=== PATIENT | male | born 1985 | race Hispanic/Latino ===

== ENCOUNTER 2020-12-08 16:41 | Outpatient (CLI) | payer BC, SELFPAY ==
--- NOTE | 2020-12-08 | ECG_ITS ---
Measurements Intervals [place] Rate: 78 P: 60 PA: 150 QRS: 9 QRSD: 100 T: 40 QT: 350 QTc: 400 Interpretive Statements SINUS RHYTHM NORMAL ECG Electronically Signed On 12-08-2020 19:49:56 CDT by Joshua Chao D.O.
--- NOTE | ~2020-12-08 | XR_ITS ---
EXAMINATION: XR chest 2V 12/08/2020 17:29 INDICATION: Midsternal chest pain and dyspnea PROCEDURE: 2 view chest COMPARISON: No prior studies for comparison. FINDINGS: The lungs are clear. The cardiomediastinal silhouette is within normal limits. There are no pleural effusions. There is no pneumothorax suspected. IMPRESSION: 1: NO ACUTE CARDIOPULMONARY DISEASE. Reviewed, dictated and finalized at location A.
== END 2020-12-08 16:42 | disposition home or self-care (01) ==
LOC: ANHIMG 16:50
PROVIDERS: Visit Provider Registered Nurse
DX: R06.09 Other forms of dyspnea (principal)
CPT/HCPCS: 71046; 93005

== ENCOUNTER 2021-02-20 19:22 | Emergency (ER) | payer BC, SELFPAY ==
--- NOTE | ~2021-02-20 | CT_ITS ---
EXAMINATION: CT abdomen pelvis wo con DATE: 02/20/2021 23:48 INDICATION: Flank pain. TECHNIQUE: Computed tomography (CT) of the abdomen and pelvis was performed without intravenous contr ast. Automated exposure control and iterative reconstruction technique were employed. The dose-length product was 1271.33 mGy-cm. COMPARISON: None. FINDINGS: The visualized portions of the lung bases demonstrate mild atelectasis. No pleural effusion . The heart size is normal. No pericardial effusion. There is diffuse hepatic steatosis. The gallblad lacie, spleen, pancreas, adrenal glands, and kidneys are normal. There is no urolithiasis. There are no dilated loops of bowel. The appendix is normal. There are no pathologically enlarged lymph nodes. Th ere is no free intraperitoneal fluid. There is mild osteoarthritis of the hips. IMPRESSION: 1. No urolithiasis. 2. Diffuse hepatic steatosis. Reviewed, dictated and finalized at location A. BER LIGHT
[2021-02-20 19:35] VITALS: BP 148/87; PULSE 99; RESP 16; TEMP 36.6; O2SAT 99
[2021-02-20 22:04] VITALS: BP 133/85; PULSE 105; O2SAT 97
--- NOTE | 2021-02-20 23:35 | ED.BACK ---
HPI - Back Pain/Injury General Chief Complaint: Back Pain/Injury Stated Complaint: back pain Time Seen by Provider: 02/20/21 23:26 Source: patient History of Present Illness HPI Narrative: Patient presents with bilateral kidney pain . Reports symptoms present for approximately 24 hours not remember any specific injuries. His pain is achy, constant, worse than anything he is experienced before, no radiation, does worsen with moving his upper torso. Denies any urinary symptoms denies any nausea vomiting or diarrhea denies any recent fevers. Related Data Home Medications Medication Instructions Recorded Confirmed loratadine mg 02/21/21 Allergies Allergy/AdvReac Type Severity Reaction Status Date / Time tree nut Allergy Unknown UNKNOWN Verified 02/21/21 00:12 Review of Systems Review of Systems: CONSTITUTIONAL: Denies fever, chills, or sweats. EYES: Denies visual changes, redness, or discharge. ENT: Denies rhinorrhea, congestion, sore throat, or otalgia. CARDIOVASCULAR: Denies chest pain, palpitations, or edema. RESPIRATORY: Denies cough or dyspnea. GASTROINTESTINAL: Denies abdominal pain, nausea, vomiting, or diarrhea. GENITOURINARY: Denies dysuria or hematuria. SKIN: Denies rash or itching. MUSCULOSKELETAL: Denies joint pain, or myalgia. NEUROLOGIC: Denies headache, numbness, dizziness, or weakness. PSYCHIATRIC: Denies anxiety or depression. All systems reviewed & are unremarkable except as noted in HPI and below PMFSH Past Medical History Medical History (Updated 02/21/21 @ 01:48 by Johny Calderon MD) Patient denies significant medical history Social History Social History (Updated 02/20/21 @ 23:37 by Johny Calderon MD) Smoking status: Former smoker Alcohol intake: never Substance use: never Exam Narrative: GENERAL: Well-appearing, well-nourished, and in no acute distress. HEAD: Normocephalic, atraumatic. EYES: PERRLA and EOMI. ENT: Nares clear, no rhinorrhea or epistaxis. Mucous membranes moist. NECK: Supple. No masses. No JVD ABDOMEN: Soft, nontender, nondistended, normal active bowel sounds. BACK: No CVA tenderness, no midline back pain, minimal tenderness palpation on the paraspinal lumbar muscles. EXTREMITIES: Normal range of motion. No edema. SKIN: Warm, dry, no rash. NEURO: No focal deficits. Alert and oriented x3. PSYCH: Normal mood and affect. Course Reevaluation(s) Reevaluation #1: Patient resting comfortably results and plan reviewed with patient. Patient comfortable with outpatient plan. Date: 02/21/21 Time: 01:46 Vital Signs Vital signs: Vital Signs Temperature 36.6 C 02/20/21 19:35 Pulse Rate 99 02/20/21 19:35 Respiratory Rate 16 02/20/21 19:35 Blood Pressure 148/87 H 02/20/21 19:35 Pulse Oximetry 99 02/20/21 19:35 Temperature 36.6 C 02/20/21 19:35 Pulse Rate 85 02/21/21 02:14 Respiratory Rate 16 02/21/21 02:14 Blood Pressure 134/89 02/21/21 02:14 Pulse Oximetry 98 02/21/21 02:14 MDM - Back Pain/Injury MDM Narrative Medical decision making narrative: H&P as above, vss, pt looks clinically well, exam reassuring, labs clinically unremarkable, img clinically unremarkable, additional labs/img considered, symptomatic relief available as needed, on reevaluation pt continues to looks clinically well. Suspect MSK pain, dns stone, acute kidney injury, cauda equina, cord compromise, fracture, pyelonephritis. plan to tx/monitor as op w/ pcm f/u findings/plan discussed with pt, pt agree/comfortable with plan, return precautions given Lab Data Result diagrams: 02/21/21 00:26 02/21/21 00:26 Labs: Lab Results 02/21/21 02/21/21 02/21/21 Range/Units 00:26 00:26 00:26 WBC 9.3 (4.5-10.0) K/mm3 RBC 5.54 (4.6-6.20) M/mm3 Hgb 15.7 (14.0-18.0) g/dL Hct 46.0 (42.0-52.0) % MCV 83.0 (80-100) fl MCH 28.3 (26-34) pg MCHC 34.1 (32-36) g/dl RDW 12.8 (11.5-14.5) % Plt Count
[2021-02-21 00:10] VITALS: BP 115/78; PULSE 86; RESP 18; O2SAT 98
[2021-02-21] MEDS: ACETAMINOPHEN 500 MG TABLET 1000 MG PO (00:13)
[2021-02-21 01:12] LABS: Basophils Percent Auto 0.3 % (0.2-1.2); Eosinophils Absolute Auto 0.1 K/mm3 (0-0.3); Eosinophils Percent Auto 1.4 % (0-4.4); Hemoglobin 15.7 g/dL (14.0-18.0); Immature Granulocyte Absolute 0.03 K/mm3 (0.00-0.031); Immature Granulocyte Percent A 0.3 % (0-0.5); Lymphocytes Percent Auto 32.1 % (18.3-44.2); Mean Corpuscular HGB Conc 34.1 g/dl (32-36); Mean Corpuscular Hemoglobin 28.3 pg (26-34); Mean Platelet Volume 9.5 fl (7.4-10.4); Monocytes Absolute Auto 0.8 K/mm3 (0.1-0.6); Monocytes Percent Auto 8.2 % (2.6-8.5); Neutrophils Absolute Auto 5.4 K/mm3 (1.3-6.7); Neutrophils Percent Auto 57.7 % (45.5-73.1); Platelet Count Result 357 k/mm3 (150-375); Red Blood Count 5.54 M/mm3 (4.6-6.20); Red Cell Distribution Width 12.8 % (11.5-14.5); White Blood Count 9.3 K/mm3 (4.5-10.0)
[2021-02-21 01:24] LABS: Add Urine Microscopic? YES; Appearance Urine Clear (Clear); Bilirubin Urine Negative (Negative); Blood Urine Negative (Negative); Color Urine Yellow (Yellow); Glucose Urine UA Negative (Negative); Ketones Urine Negative (Negative); Leukocyte Esterase Ur Negative LEU/UL (Negative); Mucus Urine Heavy /lpf; Nitrate Urine Negative (Negative); Protein Urine Negative (Negative); RBC Urine 0-2 /hpf (0-2)
[2021-02-21 01:25] LABS: Alanine Aminotransferase 62 U/L (4-50); Albumin Level 4.7 g/dL (3.5-5.1); Alkaline Phosphatase 95 U/L (38-126); Anion Gap 12 mmol/L (8-16); Aspartate Amino Transferase 42 U/L (17-59); Bilirubin,Total 0.4 mg/dL (0.2-1.3); Blood Urea Nitrogen 12 mg/dL (9-20); Calcium 9.5 mg/dL (8.4-10.2); Carbon Dioxide 28 mmol/L (22-30); Chloride 103 mmol/L (98-107); Estimated CRCL calculation 154 ml/min; Estimated Glomerular Filt Rate > 60; Glucose 84 mg/dL (65-110); Potassium 3.7 mmol/L (3.4-5.0); Sodium 143 mmol/L (137-145)
[2021-02-21 01:27] LABS: Specific Grav Ur 1.032 (1.001-1.035)
[2021-02-21 02:14] VITALS: BP 134/89; PULSE 85; RESP 16; O2SAT 98
[2021-02-21] MEDS: KETOROLAC 30 MG/ML VIAL (*BKC) IM (02:16)
== END 2021-02-21 02:26 | disposition home or self-care (01) ==
PROVIDERS: Emergency Provider Emergency Medicine; PCP Registered Nurse
DX: S39.012A Strain of muscle, fascia and tendon of lower back, initial encounter (principal); Z87.891 Personal history of nicotine dependence; Y33.XXXA Other specified events, undetermined intent, initial encounter
CPT/HCPCS: 36415; 74176; 80053; 81001; 85025; 96372; 99284; A9270; J1885

== ENCOUNTER 2021-06-13 02:56 | Emergency (ER) | payer BC, SELFPAY ==
--- NOTE | ~2021-06-13 | CT_ITS ---
EXAMINATION: CT abdomen pelvis w con DATE: 06/13/2021 06:14 INDICATION: Abdominal pain TECHNIQUE: Computed tomography (CT) of the abdomen and pelvis was performed with 100 mL Omnipaque-350 intravenous contrast. Automated exposure control and iterative reconstruction technique were employe d. The dose-length product was 1010.67 mGy-cm. COMPARISON: 02/20/2021 FINDINGS: Linear bands of discoid atelectasis in the bilateral lower lung zones. Heart size is normal. No peric ardial or pleural effusion. Diffuse hepatic steatosis with focal sparing along the gallbladder fossa. Gallbladder, pancreas, spleen, bilateral adrenal glands and kidneys are normal. Bowels including the appendix are normal. Bladder is normal. No free intraperitoneal gas or fluid. No pathologically enla rged abdominal or pelvic lymphadenopathy. Chronic mild likely physiologic anterior wedging at T11-L1. IMPRESSION: 1. No acute intra-abdominal/pelvic process. 2. Diffuse hepatic steatosis. Reviewed, dictated and finalized at location A.
[2021-06-13 02:59] VITALS: BP 125/86; PULSE 108; RESP 22; TEMP 35.9; O2SAT 97
--- NOTE | 2021-06-13 03:07 | ECG_ITS ---
Measurements Intervals [place] Rate: 99 P: 63 CO: 160 QRS: 18 QRSD: 104 T: 24 QT: 333 QTc: 428 Interpretive Statements SINUS RHYTHM EARLY REPOLARIZATION OTHERWISE NORMAL ECG COMPARED TO ECG 12/08/2020 17:10:49 NO SIGNIFICANT CHANGE Electronically Signed On 06-14-2021 8:28:59 CDT by Lazaro Clarke M.D.
--- NOTE | 2021-06-13 03:08 | ED.GENADULT ---
HPI - General Adult General Chief complaint: Nausea/Vomiting/Diarrhea <Rohan Jefferson MD - Last Filed: 06/13/21 06:54> Stated complaint: NEAR SYNCOPE AFTER EXOPSURE POWDER <Rohan Jefferson MD - Last Filed: 06/13/21 06:54> Time Seen by Provider: 06/13/21 03:04 <Rohan Jefferson MD - Last Filed: 06/13/21 06:54> Source: patient <Rohan Jefferson MD - Last Filed: 06/13/21 06:54> Mode of arrival: EMS <Rohan Jefferson MD - Last Filed: 06/13/21 06:54> Limitations: no limitations <Rohan Jefferson MD - Last Filed: 06/13/21 06:54> History of Present Illness HPI narrative: Patient is a 36-year-old male complaining of nausea and near syncopal episode after touching a white substance in the bathroom while on break at work. Patient denies any loss of consciousness. Patient denies any chest pain, shortness of breath, abdominal pain, vomiting, fever or chills. <Rohan Jefferson MD - Last Filed: 06/13/21 06:54> Related Data Home medications: Home Medications Medication Instructions Recorded Confirmed No Home Medications 06/13/21 06/13/21 <Roahn Jefferson MD - Last Filed: 06/13/21 06:54> Allergies/adverse reactions: Allergies Allergy/AdvReac Type Severity Reaction Status Date / Time tree nut Allergy Unknown UNKNOWN Verified 06/13/21 03:07 <Rohan Jefferson MD - Last Filed: 06/13/21 06:54> Review of Systems Review of Systems: All systems reviewed & are unremarkable except as noted in HPI and below <Rohan Jefferson MD - Last Filed: 06/13/21 06:54> Constitutional: Constitutional: Denies body ache(s), Denies chills, Denies excessive sweating, Denies fatigue, Denies fever(s), Denies headache(s), Denies lethargy, Denies malaise, Denies weakness and Denies weight loss <Rohan Jefferson MD - Last Filed: 06/13/21 06:54> Eyes: Eyes: Denies blurry vision, Denies change in vision and Denies loss of vision <Rohan Jefferson MD - Last Filed: 06/13/21 06:54> ENT: Denies dizziness, Denies ear discharge, Denies headache(s), Denies lip swelling, Denies epistaxis, Denies nasal congestion, Denies neck pain, Denies throat swelling and Denies tongue swelling <Rohan Jefferson MD - Last Filed: 06/13/21 06:54> Cardiovascular: Cardiovascular: Denies chest pain, Denies chest pain at rest, Denies chest pain with activity, Denies diaphoresis, Denies rapid heart rate, Denies edema, Denies irregular heart rhythm, Denies lightheadedness, Denies palpitations, Denies dyspnea and Denies dyspnea on exertion <Rohan Jefferson MD - Last Filed: 06/13/21 06:54> Respiratory: Respiratory: Denies chest congestion, Denies cough, Denies hemoptysis, Denies dyspnea and Denies dyspnea on exertion <Rohan Jefferson MD - Last Filed: 06/13/21 06:54> Gastrointestinal: Gastrointestinal: Denies abdominal pain, Denies melena, Denies hematochezia, Denies diarrhea, Reports nausea, Denies vomiting and Denies hematemesis <Rohan Jefferson MD - Last Filed: 06/13/21 06:54> Musculoskeletal: Musculoskeletal: Denies abnormal gait, Denies deformity, Denies joint swelling, Denies limited range of motion, Denies neck pain and Denies numbness <Rohan Jefferson MD - Last Filed: 06/13/21 06:54> Neurologic: Denies Abnormal speech present, Denies abnormal gait, Denies confusion, Denies dizziness, Denies headache(s), Denies focal weakness, Denies loss of vision, Denies numbness, Denies Other visual disturbances, Denies Sensory deficit (Neuro) and Denies weakness <Rohan Jefferson MD - Last Filed: 06/13/21 06:54> Psychiatric: Psychiatric: Denies confusion, Denies depression, Denies auditory hallucinations, Denies homicidal ideation and Denies suicidal ideation <Rohan Jefferson MD - Last Filed: 06/13/21 06:54> Endocrine: Endocrine: Denies cold intolerance, Denies excessive sweating, Denies fatigue, Denies heat intolerance and Denies palpitations <Rohan Jefferson MD - Last Filed: 06/13/21 06:5
[2021-06-13] MEDS: PROMETHAZINE HCL 25 MG/ML AMPUL 12.5 MG IV PUSH (03:24)
[2021-06-13] MEDS: SODIUM CHLORIDE 0.9% IV 1,000 ML 999 ML IV CONT (03:24)
[2021-06-13 03:50] VITALS: BP 120/85; PULSE 96; RESP 15; O2SAT 93
[2021-06-13 04:09] LABS: Basophils Percent Auto 0.1 % (0.2-1.2); Hematocrit 46.4 % (42.0-52.0); Hemoglobin 15.1 g/dL (14.0-18.0); Immature Granulocyte Absolute 0.25 K/mm3 (0.00-0.031); Immature Granulocyte Percent A 1.2 % (0-0.5); Lymphocytes Absolute Auto 1.32 K/mm3 (0.9-3.2); Lymphocytes Percent Auto 6.5 % (18.3-44.2); Mean Corpuscular HGB Conc 32.5 g/dl (32-36); Mean Corpuscular Hemoglobin 28.1 pg (26-34); Mean Corpuscular Volume 86.4 fl (80-100); Mean Platelet Volume 9.4 fl (7.4-10.4); Monocytes Absolute Auto 1.2 K/mm3 (0.1-0.6); Monocytes Percent Auto 5.9 % (2.6-8.5); Neutrophils Absolute Auto 17.6 K/mm3 (1.3-6.7); Neutrophils Percent Auto 86.3 % (45.5-73.1); Platelet Count Result 341 k/mm3 (150-375); Red Blood Count 5.37 M/mm3 (4.6-6.20); Red Cell Distribution Width 13.4 % (11.5-14.5); White Blood Count 20.4 K/mm3 (4.5-10.0)
[2021-06-13 04:12] LABS: Alanine Aminotransferase 58 U/L (4-50); Albumin Level 4.7 g/dL (3.5-5.1); Alkaline Phosphatase 97 U/L (38-126); Anion Gap 12 mmol/L (8-16); Aspartate Amino Transferase 67 U/L (17-59); Bilirubin,Total 0.2 mg/dL (0.2-1.3); Blood Urea Nitrogen 10 mg/dL (9-20); Carbon Dioxide 23 mmol/L (22-30); Chloride 105 mmol/L (98-107); Estimated CRCL calculation 144 ml/min; Estimated Glomerular Filt Rate > 60; Glucose 161 mg/dL (65-110); Lipase 31 U/L (23-300); Potassium 4.3 mmol/L (3.4-5.0); Sodium 140 mmol/L (137-145)
[2021-06-13 04:58] LABS: Amphetamine Screen Urine Negative (Negative); Barbiturate Screen Urine Negative (Negative); Benzodiazepines Screen Urine Negative (Negative); Cannabinoid Screen Urine Negative (Negative); Cocaine Screen Urine Negative (Negative); Methadone Screen Urine Negative (Negative); Opiate Screen Urine Negative (Negative); Phencyclidine Screen Urine Negative (Negative)
[2021-06-13 05:17] VITALS: BP 129/83; PULSE 93; RESP 16; O2SAT 94
[2021-06-13 06:28] LABS: Add Urine Microscopic? YES; Appearance Urine Cloudy (Clear); Bilirubin Urine Negative (Negative); Blood Urine Negative (Negative); Color Urine Yellow (Yellow); Glucose Urine UA 2+ mg/dL (Negative); Hyaline Casts Urine 30-49 /lpf; Ketones Urine Negative (Negative); Leukocyte Esterase Ur Negative LEU/UL (Negative); Mucus Urine Few /lpf; Nitrate Urine Negative (Negative); Protein Urine 1+ mg/dL (Negative); RBC Urine 0-2 /hpf (0-2); Specific Grav Ur 1.021 (1.001-1.035); Squamous Epithelial Cell Urine Rare /hpf (Few); Urobilinogen Urine Negative mg/dL (<2.0); WBC Urine 0-3 /hpf
[2021-06-13 06:35] VITALS: BP 127/89; PULSE 86; RESP 15; O2SAT 93
[2021-06-13 08:12] VITALS: BP 123/81; PULSE 96; RESP 18; O2SAT 92
== END 2021-06-13 08:14 | disposition home or self-care (01) ==
PROVIDERS: Emergency Provider Emergency Medicine; PCP Registered Nurse
DX: Z77.098 Contact with and (suspected) exposure to other hazardous, chiefly nonmedicinal, chemicals (principal); R55 Syncope and collapse; R11.0 Nausea; Z87.891 Personal history of nicotine dependence; K76.0 Fatty (change of) liver, not elsewhere classified
CPT/HCPCS: 36415; 74177; 80053; 80307; 81001; 83690; 85025; 93005; 96361; 96374; 99284; J2550; J7030; Q9967

== ENCOUNTER 2022-01-05 15:50 | Emergency (ER) | payer BC, SELFPAY ==
--- NOTE | 2022-01-05 15:56 | PC.NURSE ---
RN called pt. for triage no answer
[2022-01-05 16:06] VITALS: BP 143/91; PULSE 91; RESP 20; TEMP 36.6; O2SAT 100
--- NOTE | 2022-01-05 17:26 | ED.GENADULT ---
HPI - General Adult General Chief complaint: Wound/Laceration Stated complaint: laceration x week Time Seen by Provider: 01/05/22 17:06 Source: patient Mode of arrival: ambulatory Limitations: no limitations History of Present Illness HPI narrative: Patient presents complaints of wound to states area started as an infected hair and has increased in size and is becoming painful. Denies fever or other complaints at this time. Has not been treating at home with anything yet. Related Data Home Medications Medication Instructions Recorded Confirmed No Home Medications 06/13/21 06/13/21 Allergies Allergy/AdvReac Type Severity Reaction Status Date / Time tree nut Allergy Unknown UNKNOWN Verified 06/13/21 03:07 Review of Systems Review of Systems: CONSTITUTIONAL: Denies fever, chills, or sweats. EYES: Denies visual changes, redness, or discharge. ENT: Denies rhinorrhea, congestion, sore throat, or otalgia. CARDIOVASCULAR: Denies chest pain, palpitations, or edema. RESPIRATORY: Denies cough or dyspnea. GASTROINTESTINAL: Denies abdominal pain, nausea, vomiting, or diarrhea. GENITOURINARY: Denies dysuria or hematuria. SKIN: Abscess suprapubic area. Denies rash or itching. MUSCULOSKELETAL: Denies back pain, joint pain, or myalgia. NEUROLOGIC: Denies headache, numbness, or weakness. PSYCHIATRIC: Denies anxiety or depression. PMFSH Past Medical History Medical History Patient denies significant medical history Social History Social History Smoking status: Former smoker Alcohol intake: never Substance use: never Exam Narrative: GENERAL: Well-appearing, well-nourished, and in no acute distress. HEAD: Normocephalic, atraumatic. EYES: PERRLA and EOMI. ENT: Nares clear, no rhinorrhea or epistaxis. Mucous membranes moist. NECK: Supple. CHEST: Clear to auscultation. No respiratory distress. HEART: Regular rate and rhythm. No murmur heard. Normal peripheral pulses. ABDOMEN: Soft, nontender, nondistended, normal active bowel sounds. EXTREMITIES: Normal range of motion. No edema. SKIN: Warm, dry, no rash. 3 cm area of induration suprapubic area. Central opening noted to abscess with scant serosanguineous drainage. Mild erythema directly surrounding area of induration. Area is tender to palpation. No central fluctuance. NEURO: No focal deficits. Alert and oriented x3. PSYCH: Normal mood and affect. Course Course Emergency Course: After examining patient and returning to answer discharge instructions patient stated that he could not wait any longer for discharge instructions and prescription. States that he has to be in a class and is leaving AGAINST MEDICAL ADVICE prior to receiving prescription or instructions. Vital Signs Vital signs: Vital Signs Temperature 36.6 C 01/05/22 16:06 Pulse Rate 91 01/05/22 16:06 Respiratory Rate 20 01/05/22 16:06 Blood Pressure 143/91 H 01/05/22 16:06 Pulse Oximetry 100 01/05/22 16:06 Oxygen Delivery Room Air 01/05/22 16:06 Temperature 36.6 C 01/05/22 16:06 Pulse Rate 91 01/05/22 16:06 Respiratory Rate 20 01/05/22 16:06 Blood Pressure 143/91 H 01/05/22 16:06 Pulse Oximetry 100 01/05/22 16:06 Oxygen Delivery Room Air 01/05/22 16:06 Medical Decision Making Vital Signs Vital Signs: Vital Signs Temperature 36.6 C 01/05/22 16:06 Pulse Rate 91 01/05/22 16:06 Respiratory Rate 20 01/05/22 16:06 Blood Pressure 143/91 H 01/05/22 16:06 Pulse Oximetry 100 01/05/22 16:06 Oxygen Delivery Room Air 01/05/22 16:06 Temperature 36.6 C 01/05/22 16:06 Pulse Rate 91 01/05/22 16:06 Respiratory Rate 20 01/05/22 16:06 Blood Pressure 143/91 H 01/05/22 16:06 Pulse Oximetry 100 01/05/22 16:06 Oxygen Delivery Room Air 01/05/22 16:06 Discharge Plan Discharge Clinical Impression: Abscess
--- NOTE | 2022-01-05 17:37 | PC.NURSE ---
Patient states he is leaving because he needs to get to class. HOSPITAL AIDE Ashok notified, patient signed out AMA. Patient educated to return to ED if symptoms worsen or continue and patient states I will come back after class.
== END 2022-01-05 17:40 | disposition left against medical advice (07) ==
PROVIDERS: PCP Registered Nurse
DX: L02.219 Cutaneous abscess of trunk, unspecified (principal); Z53.29 Procedure and treatment not carried out because of patient's decision for other reasons
CPT/HCPCS: 99281

== ENCOUNTER 2022-02-22 16:05 | Emergency (ER) | payer BC, SELFPAY ==
[2022-02-22 16:24] VITALS: BP 122/79; PULSE 80; RESP 18; TEMP 36.7; O2SAT 100
--- NOTE | 2022-02-22 17:24 | ED.WOUNDLAC ---
HPI - Wound/Laceration General Chief Complaint: Wound/Laceration Stated Complaint: wound that won't heal Time Seen by Provider: 02/22/22 17:08 Source: patient Mode of arrival: ambulatory Limitations: no limitations History of Present Illness HPI narrative: 37-year-old male presents today with complaints of a draining abscess to his beltline. Patient states he had an abscess there previously but it went away. Noticed this 1 then started draining yesterday. Drainage is purulent and sanguinous. Small amount. Patient denies any fevers, body aches, chills. Patient denies any other issues. Related Data Allergies Allergy/AdvReac Type Severity Reaction Status Date / Time tree nut Allergy Unknown UNKNOWN Verified 06/13/21 03:07 Review of Systems Review of Systems: CONSTITUTIONAL: Denies fever, chills, or sweats. EYES: Denies visual changes, redness, or discharge. CARDIOVASCULAR: Denies chest pain, palpitations, or edema. RESPIRATORY: Denies cough or dyspnea. GASTROINTESTINAL: Denies abdominal pain, nausea, vomiting, or diarrhea. GENITOURINARY: Denies dysuria or hematuria. SKIN: Denies rash or itching. Draining abscess to beltline. PMFSH Past Medical History Medical History Patient denies significant medical history Social History Social History Smoking status: Former smoker Alcohol intake: never Substance use: never Exam Narrative: GENERAL: Well-appearing, well-nourished, and in no acute distress. HEAD: Normocephalic, atraumatic. EYES: PERRLA and EOMI. CHEST: Clear to auscultation. No respiratory distress. No wheezes rales or rhonchi HEART: Regular rate and rhythm. No murmur heard. Normal peripheral pulses. ABDOMEN: Soft, nontender, nondistended, normal active bowel sounds. EXTREMITIES: Normal range of motion. No edema. SKIN: Warm, dry, no rash. Small 1 cm open draining abscess noted above pelvic bone. Area of 1 to 2 cm surrounding induration Course Vital Signs Vital signs: Vital Signs Temperature 98.0 F 02/22/22 16:24 Pulse Rate 80 02/22/22 16:24 Respiratory Rate 18 02/22/22 16:24 Blood Pressure 122/79 02/22/22 16:24 Pulse Oximetry 100 02/22/22 16:24 Oxygen Delivery Room Air 02/22/22 16:24 Temperature 98.0 F 02/22/22 16:24 Pulse Rate 80 02/22/22 16:24 Respiratory Rate 18 02/22/22 16:24 Blood Pressure 122/79 02/22/22 16:24 Pulse Oximetry 100 02/22/22 16:24 Oxygen Delivery Room Air 02/22/22 16:24 Procedures Abscess I/D abdomen: Date of Incision: 02/22/22 Time of Incision: 17:29 Sedation/analgesia: none Local Anesthetic: none Technique: probed loculations and other (area already opened no need to incise. ) Amount of fluid expressed (mL): 1 Irrigation: Yes Packing used?: none I&D Results: Pus and Blood Complications: pain MDM - Wound/Laceration Differential Diagnosis Differential diagnosis: Likely abscess and other (cellulitis) Medical Records Attestation: I reviewed the patient's medical records. Discharge Plan Discharge Clinical Impression: Abscess Patient Disposition: Home, Self-Care Condition: Stable Instructions: Antibiotic Form, Cellulitis (ED) Additional Instructions: Please take antibiotics as prescribed start tonite. Wash wound twice a day with soap and water. Follow-up with your primary care physician in 3 days. Return with any new or worsening symptoms including fever increased swelling or increased pain. Prescriptions: New sulfamethoxazole-trimethoprim [Bactrim DS] 800-160 mg tablet 1 tablet PO Q12H Qty: 10 0RF Follow-up/Referrals: Kareen,SHYLA King [Primary Care Provider] - Time of Disposition: 17:35
== END 2022-02-22 17:48 | disposition home or self-care (01) ==
PROVIDERS: Emergency Provider Nurse Practitioner Family; PCP Registered Nurse
DX: L02.211 Cutaneous abscess of abdominal wall (principal); Z87.891 Personal history of nicotine dependence
CPT/HCPCS: 99283